=== PATIENT | male | born 1940 | race Caucasian/White ===

== ENCOUNTER → 2017-09-20 | Outpatient (CLI) | payer MEDICARE ==
[~2017-09-20] MED LIST: ASPIR 8181 MG PO; BYSTOLIC PO; CALCIUM + D PO; LUMIGAN OS; PROBIOTIC PO; RAPAFLO4 MG PO; TAMSULOSIN PO; VITAMIN B12 PO
--- NOTE | 2017-09-20 13:09 | Diagnostic Imaging Report ---
PROCEDURE: X-RAY CHEST, TWO VIEWS COMPARISON: 07/10/2016. INDICATIONS: PRE OPERATIVE CHEST X-RAY PROSTATE FINDINGS: Lungs are well inflated. No focal airspace consolidation, pleural effusion, or pneumothorax. Stable cardiomediastinal contour with tortuosity and atherosclerotic calcification of the thoracic aorta. Normal heart size. No overt pulmonary edema. No acute osseous abnormality. 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 Dictated by: Ananda Seals M.D. on 09/20/2017 at 13:11 Electronically approved by: Ananda Seals M.D. on 09/20/2017 at 13:11
== END ==
LOC: RAD 12:20
PROVIDERS: ATTEND General Practice
DX: Z01.818 Encounter for other preprocedural examination (principal); R97.20 Elevated prostate specific antigen [PSA]
CPT/HCPCS: 71046; 93005